=== PATIENT | female | born 1950 | race Caucasian/White ===

== ENCOUNTER 2017-10-27 06:53 | Day surgery (SDC) | payer MEDICARE, BC ==
[2017-10-26 15:43] LABS: CLARITY,URINE SLIGHTLY CLOUDY (Clear); COLOR,URINE YELLOW (Yellow); GLUCOSE, URINE NEGATIVE (Neg); KETONES,URINE NEGATIVE (Neg); LEUKOCYTE ESTERASE ,URINE MODERATE (Neg); NITRITES, URINE NEGATIVE (Neg); OCCULT BLOOD,URINE NEGATIVE (Neg); PH,URINE 5.5 (4.8-8.0); PROTEIN,URINE NEGATIVE (Neg); UROBILINOGEN,URINE 0.2 E.U/dL (0.2-1.0)
[2017-10-26 15:44] LABS: BASOPHILS % (AUTO) 0.5 % (0-1); EOSINOPHILS # (AUTO) 0.3 X10'3 (0-0.9); EOSINOPHILS % (AUTO) 4.6 % (0-6); LYMPHOCYTES # (AUTO) 3.3 X10'3 (1.1-4.8); LYMPHOCYTES % (AUTO) 44.2 % (21-51); MEAN CORPUSCULAR HEMOGLOBIN 29.9 PG (27.0-31.0); MEAN CORPUSCULAR HGB CONC 33.7 % (33.0-36.5); MEAN CORPUSCULAR VOLUME 88.8 FL (78-98); MEAN PLATELET VOLUME 8.3 FL (7.4-10.4); MONOCYTES # (AUTO) 0.5 X10'3 (0-0.9); MONOCYTES % (AUTO) 7.2 % (2-12); NEUTROPHILS # (AUTO) 3.2 X10'3 (1.8-7.7); NEUTROPHILS % (AUTO) 43.5 % (42-75); PRE OP HEMATOCRIT 38.5 % (35.0-45.0); PRE OP PLATELET COUNT 266 X10'3 (140-440); RED BLOOD COUNT 4.34 X10'6 (4.20-5.60); RED CELL DISTRIBUTION WIDTH 14.4 % (11.5-14.5)
[2017-10-26 16:05] LABS: UA COLLECTION TYPE CLN CATCH MIDSTREAM
[2017-10-26 16:06] LABS: RBC,URINE NONE SEEN /HPF (0-2); WBC,URINE 0-4 /HPF (0-4)
[2017-10-26 16:06] LABS: ALBUMIN 3.8 G/DL (3.4-5.0); ALBUMIN/GLOBULIN RATIO 1.1 (1.1-1.5); ALKALINE PHOSPHATASE 95 IU/L (46-116); BLOOD UREA NITROGEN 19 MG/DL (7-18); BUN/CREATININE RATIO 26.4 (6.6-38.0); CALCIUM 8.7 MG/DL (8.5-10.1); CHLORIDE 103 MMOL/L (99-107); CREATININE 0.72 MG/DL (0.40-0.90); PRE OP ALT 24 U/L (30-65); PRE OP ANION GAP 8 (8-16); PRE OP AST 14 U/L (10-37); PRE OP BILIRUB, TOTAL 0.2 MG/DL (0.0-1.0); PRE OP GLUCOSE 80 MG/DL (70-104); PRE OP SODIUM 141 MMOL/L (135-145); TOTAL CARBON DIOXIDE 29.7 MMOL/L (24-32); TOTAL PROTEIN 7.2 G/DL (6.4-8.2); eGFR 82 ML/MIN
[2017-10-26 16:07] LABS: BACTERIA,URINE 1+ /HPF (Neg); SQUAMOUS EPITHELIAL CELL,UR FEW /LPF (FEW)
[2017-10-26 16:08] LABS: PRE OP POTASSIUM 3.2 MMOL/L (3.4-5.1)
[~2017-10-27] VITALS: Ht 154.9 cm; Wt 96.8 kg
[2017-10-27] VITALS (11 sets, daily range): BP systolic 101–132; BP diastolic 52–130
[~2017-10-27 06:53] MED LIST: AMIT-189 PO; BENA1TAB79 PO; CHOL200016 PO; CLON0.5T23 PO; CYCL-394 PO; DOCU100C41 PO; PANT40TA4 PO; PREG150C PO; SIMV40TA4 PO; TRAM50TA2 PO; VENL150C58 PO; VITAMIN B PO; [UNRECOGNIZED DRUG - OTHER] PO; ceFAZolin 2gm in dextrose, iso 100 ML IV ONE; famotidine 20mg tablet PO ONE; ringers solution, lacted 1,000 ML IV SCH
[2017-10-27] MEDS ORDERED: BUPIVAcaine/PF 2.5 mg/ml (0.25%) 30ml vial ONE (07:37)
[2017-10-27 08:16] LABS: ISTAT CREATININE 0.8 mg/dL (0.6-1.1); ISTAT HGB 11.9 g/dl (12.0-16.0); ISTAT IONIZED CALCIUM 1.2 mmol/L (1.03-1.32); ISTAT K 3.8 mmol/L (3.5-5.1); POC BUN/CREATININE RATIO 27.5 (6.6-38.0)
[2017-10-27] MEDS ORDERED: propofol inj 20 ML IV ONE (08:44)
[2017-10-27] MEDS ORDERED: rocuronium 10mg/ml inj IV ONE (08:44)
[2017-10-27] MEDS ORDERED: fentaNYL /PF 50mcg/ml 5ml ampule ONE (08:46)
[2017-10-27] MEDS ORDERED: midazolam 2 mg/2 ml injection ONE (08:47)
[2017-10-27] MEDS ORDERED: glycopyrrolate 0.2mg/ml inj ONE (09:28)
[2017-10-27] MEDS ORDERED: dexamethasone sod phosphate 4mg/ml inj. ONE (09:28)
[2017-10-27] MEDS ORDERED: neostigmine methylsulfate 1 MG/ML 10ml vial ONE (09:28)
[2017-10-27] MEDS ORDERED: ondansetron/PF 4mg/2ml inj ONE (09:28)
[2017-10-27] MEDS ORDERED: ringers solution, lacted 1,000 ML IV SCH (10:11)
[2017-10-27] MEDS ORDERED: proCHLORperazine 10 MG/2 ml inj IV PRN (10:15)
[2017-10-27] MEDS ORDERED: meperidine/PF 50mg/ml syringe IV PRN ×2 (10:15)
[2017-10-27] MEDS ORDERED: ondansetron/PF 4mg/2ml inj IV PRN (10:15)
[2017-10-27] MEDS ORDERED: HYDROmorphone inj. 0.5 MG/0.5 ML DISP.SYRIN IV PRN ×2 (10:15)
[2017-10-27] MEDS ORDERED: ketorolac trometh. 30mg/ml inj. IV ONE (10:15)
[2017-10-27] MEDS ORDERED: fentaNYL/PF 50MCG/1 ML 2ML syringe IV PRN ×2 (10:15)
== END 2017-10-27 11:40 | disposition home or self-care (01) ==
LOC: PAS 06:53
PROVIDERS: ATTEND Surgery
DX: K80.12 Calculus of gallbladder with acute and chronic cholecystitis without obstruction (principal); I10 Essential (primary) hypertension; K21.9 Gastro-esophageal reflux disease without esophagitis; E55.9 Vitamin D deficiency, unspecified; E56.0 Deficiency of vitamin E; F32.9 Major depressive disorder, single episode, unspecified; J45.909 Unspecified asthma, uncomplicated; M19.90 Unspecified osteoarthritis, unspecified site; M79.7 Fibromyalgia; E78.00 Pure hypercholesterolemia, unspecified; E66.9 Obesity, unspecified; F41.9 Anxiety disorder, unspecified; Z68.41 Body mass index [BMI] 40.0-44.9, adult; Z96.653 Presence of artificial knee joint, bilateral; Z90.89 Acquired absence of other organs; Z98.890 Other specified postprocedural states; Z88.2 Allergy status to sulfonamides; Z79.899 Other long term (current) drug therapy
CPT/HCPCS: 36415; 47562; 80047; 80053; 81001; 85025; 87088; 93005; J0690; J1100; J1885; J2250; J2405; J2704; J2710; J3010; J3490; J7120; 88304; A7000

== ENCOUNTER 2022-04-15 08:52 | Inpatient (IN) | payer MEDICARE, BC ==
[2022-04-06 13:25] LABS: BASOPHILS # (AUTO) 0.1 X10'3 (0-0.2); BASOPHILS % (AUTO) 0.8 % (0-1); EOSINOPHILS # (AUTO) 0.3 X10'3 (0-0.9); EOSINOPHILS % (AUTO) 3.9 % (0-6); LYMPHOCYTES # (AUTO) 3.1 X10'3 (1.1-4.8); MEAN CORPUSCULAR HEMOGLOBIN 29.1 PG (27.0-31.0); MEAN CORPUSCULAR HGB CONC 32.9 g/dL (33.0-36.5); MEAN CORPUSCULAR VOLUME 88.4 FL (78-98); MEAN PLATELET VOLUME 8.3 FL (7.4-10.4); MONOCYTES # (AUTO) 0.6 X10'3 (0-0.9); MONOCYTES % (AUTO) 8.9 % (2-12); NEUTROPHILS # (AUTO) 2.7 X10'3 (1.8-7.7); NEUTROPHILS % (AUTO) 40.4 % (42-75); PRE OP HEMATOCRIT 40.2 % (35.0-45.0); PRE OP HEMOGLOBIN 13.2 g/dL (12.0-16.0); PRE OP PLATELET COUNT 255 X10'3 (140-440); RED BLOOD COUNT 4.55 X10'6 (4.20-5.60); RED CELL DISTRIBUTION WIDTH 14.8 % (11.5-14.5)
[2022-04-06 13:32] LABS: ALBUMIN 3.9 G/DL (3.4-5.0); ALBUMIN/GLOBULIN RATIO 1.3 (1.1-1.5); ALKALINE PHOSPHATASE 101 IU/L (46-116); BLOOD UREA NITROGEN 19 MG/DL (7-18); BUN/CREATININE RATIO 24.7 (6.6-38.0); CALCIUM 8.8 MG/DL (8.5-10.1); CHLORIDE 102 MMOL/L (99-107); CREATININE 0.77 MG/DL (0.40-0.90); PRE OP ALT 24 U/L (30-65); PRE OP ANION GAP 6 (8-16); PRE OP AST 16 U/L (10-37); PRE OP BILIRUB, TOTAL 0.3 MG/DL (0.0-1.0); PRE OP GLUCOSE 81 MG/DL (70-104); PRE OP SODIUM 139 MMOL/L (135-145); TOTAL CARBON DIOXIDE 31.3 MMOL/L (24-32); eGFR 74 ML/MIN
[~2022-04-15] VITALS: Ht 154.9 cm; Wt 92.9 kg
[2022-04-15] VITALS (18 sets, daily range): BP systolic 96–159; BP diastolic 63–94
[~2022-04-15 08:52] MED LIST changes: -AMIT-189 PO; +AMIT25TA9 PO; -BENA1TAB79 PO; +BENA1TAB88 PO; -CLON0.5T23 PO; +FAMO-156 PO; +MAGN250C PO; +MAGN64TA8 PO; +MULT-1173; -PANT40TA4 PO; +PANT40TA54 PO; +SIMV-45 PO; -SIMV40TA4 PO; -TRAM50TA2 PO; -VITAMIN B PO; +VITE400C PO; -[UNRECOGNIZED DRUG - OTHER] PO; -ceFAZolin 2gm in dextrose, iso 100 ML IV ONE; +ceFAZolin inj. 2,000 MG in dextrose 5%-water 100 ML IV ONE; +tranexamic acid inj. 1,000 MG in normal saline IV soln 100ML IV ONE; +vancomycin 1,500 MG in NS 300ml IV soln IV ONE; +vitafusion
[2022-04-15] MEDS ORDERED: vancomycin 1,000mg inj ONE ×2 (10:23→11:11)
[2022-04-15] MEDS ORDERED: ketorolac trometh. 30mg/ml inj. ONE (11:02)
[2022-04-15] MEDS ORDERED: ROPIVAcaine 0.5% (5mg/ml) 30ml vial ONE ×2 (11:03→12:06)
[2022-04-15] MEDS ORDERED: epiNEPHrine 1 mg/ml inj ONE (11:03)
[2022-04-15] MEDS ORDERED: morphine /PF 1mg/ml 10ml inj. ONE (11:03)
[2022-04-15] MEDS ORDERED: morphine 10mg/ml inj. ONE (11:05)
[2022-04-15] MEDS ORDERED: MIDAZolam 1mg/ml 10ml vial ONE (11:37)
[2022-04-15] MEDS ORDERED: fentaNYL/PF 50MCG/1 ML 2ML syringe ONE (11:37)
[2022-04-15] MEDS ORDERED: morphine 2 MG/ML inj. syringe IV PRN (14:35)
[2022-04-15] MEDS ORDERED: ROPIVAcaine 0.2% (10 MG/5 ML) BOLUS INJECTION ADDCANAL PRN (14:35)
[2022-04-15] MEDS ORDERED: ringers solution, lacted 1,000 ML IV SCH (14:35)
[2022-04-15] MEDS ORDERED: ROPIVAcaine 0.2%/PF PUMP/bolus 545 ML ADDCANAL SCH (14:35)
[2022-04-15] MEDS ORDERED: morphine 4 MG/ML inj SYRINge IV PRN (14:35)
[2022-04-15] MEDS ORDERED: ondansetron/PF 4mg/2ml inj IV PRN ×3 (14:35→15:10)
[2022-04-15] MEDS ORDERED: proCHLORperazine 10 MG/2 ml inj IV PRN (14:35)
[2022-04-15] MEDS ORDERED: meperidine/PF 25mg/ml syringe IV PRN ×3 (14:35)
[2022-04-15] MEDS ORDERED: naloxone 0.4 mg/ml inj IV PRN ×2 (15:05→15:10)
[2022-04-15] MEDS ORDERED: acetaminophen 325mg tablet PO PRN ×2 (15:05→15:10)
[2022-04-15] MEDS ORDERED: diphenhydrAMINE 25mg capsule PO PRN ×4 (15:05→15:10)
[2022-04-15] MEDS ORDERED: magnesium hydroxide 30ml (MOM) UD suspension PO PRN ×2 (15:05→15:10)
[2022-04-15] MEDS ORDERED: bisacodyl 10mg suppository rectal RC PRN ×2 (15:05→15:10)
[2022-04-15] MEDS ORDERED: HYDROmorphone inj. 0.5 MG/0.5 ML DISP.SYRIN IV PRN (15:10)
[2022-04-15] MEDS ORDERED: HYDROmorphone 1 mg/ml syringe IV PRN (15:10)
[2022-04-15] MEDS: potassium cl 20mEq in 1/2 NS 1,000 ML IV SCH (17:03)
[2022-04-15] MEDS ORDERED: tranexamic acid inj. 930 MG in normal saline 100ml IV soln 90.7 ML IV ONE (18:30)
[2022-04-15] MEDS: ceFAZolin/D5W- 1GM premix 50 ML IV SCH (19:15)
[2022-04-15] MEDS ORDERED: vancomycin/NS 1 GM ADD-VANTAGE 250 ML IV SCH (20:00)
[2022-04-15] MEDS: gabapentin 300mg capsule PO SCH (20:12)
[2022-04-15] MEDS: sennosides 8.6mg tablet PO SCH (20:12)
[2022-04-15] MEDS: acetaminophen 325mg tablet PO SCH (20:12)
[2022-04-15] MEDS ORDERED: sennosides 8.6mg tablet PO SCH (21:00)
[2022-04-15] MEDS: amitriptyline 25mg tablet PO SCH (21:55)
[2022-04-15] MEDS: pregabalin 75mg capsule PO SCH (21:55)
[2022-04-16] MEDS: ceFAZolin/D5W- 1GM premix 50 ML IV SCH (01:29)
[2022-04-16] MEDS: acetaminophen 325mg tablet PO SCH ×4 (01:30→20:05)
[2022-04-16 02:00] VITALS: BP 112/58
[2022-04-16] MEDS: potassium cl 20mEq in 1/2 NS 1,000 ML IV SCH ×3 (03:56→15:11)
[2022-04-16] MEDS: oxyCODONE IR 5mg (immed. release) tablet PO PRN ×3 (05:18→20:06)
[2022-04-16 06:00] VITALS: BP 114/67
[2022-04-16 06:44] LABS: BASOPHILS % (AUTO) 0.2 % (0-1); EOSINOPHILS % (AUTO) 0.1 % (0-6); HEMATOCRIT 29.5 % (35.0-45.0); LYMPHOCYTES # (AUTO) 1.7 X10'3 (1.1-4.8); LYMPHOCYTES % (AUTO) 14.7 % (21-51); MEAN CORPUSCULAR HEMOGLOBIN 30.3 PG (27.0-31.0); MEAN CORPUSCULAR HGB CONC 33.9 g/dL (33.0-36.5); MEAN CORPUSCULAR VOLUME 89.3 FL (78-98); MEAN PLATELET VOLUME 8.4 FL (7.4-10.4); MONOCYTES # (AUTO) 0.7 X10'3 (0-0.9); MONOCYTES % (AUTO) 6.4 % (2-12); NEUTROPHILS # (AUTO) 9.1 X10'3 (1.8-7.7); NEUTROPHILS % (AUTO) 78.6 % (42-75); PLATELET COUNT 190 X10'3 (140-440); RED CELL DISTRIBUTION WIDTH 14.2 % (11.5-14.5); WHITE BLOOD COUNT 11.6 X10'3 (4.5-11.0)
[2022-04-16 06:48] LABS: ANION GAP 5 (8-16); CHLORIDE 109 MMOL/L (99-107); POTASSIUM 4.1 MMOL/L (3.5-5.1); SODIUM 142 MMOL/L (135-145); TOTAL CARBON DIOXIDE 27.6 MMOL/L (24-32)
[2022-04-16] MEDS: MAGNESIUM CITRATE AND OXIDE 250 MG PO SCH (08:00)
[2022-04-16] MEDS: [UNRECOGNIZED DRUG - OTHER] PO SCH (08:00)
[2022-04-16] MEDS: docusate sod 100mg capsule PO SCH (08:50)
[2022-04-16] MEDS: pregabalin 75mg capsule PO SCH ×2 (08:51→20:05)
[2022-04-16] MEDS: cyclobenzaprine 10mg tablet PO SCH ×2 (08:51→20:05)
[2022-04-16] MEDS: atorvastatin 20mg tablet PO SCH (08:51)
[2022-04-16] MEDS: gabapentin 300mg capsule PO SCH ×3 (08:52→20:06)
[2022-04-16] MEDS: HYDROchlorothiazide 12.5mg capsule PO SCH (08:52)
[2022-04-16] MEDS: pantoprazole 40mg Tablet.DR PO SCH (08:52)
[2022-04-16] MEDS: multivitamins, therapeutics tablet PO SCH (08:53)
[2022-04-16] MEDS: cholecalciferol (vitamin D3) 1,000 unit (25mcg) tablet PO SCH (08:54)
[2022-04-16] MEDS: lisinopril 20mg tablet PO SCH (08:57)
[2022-04-16] MEDS: vitamin E 400 unit capsule PO SCH (08:58)
[2022-04-16] MEDS: enoxaparin 40mg/0.4ml syringe SQ SCH (09:02)
[2022-04-16 10:00] VITALS: BP 135/63
[2022-04-16] MEDS: venlafaxine XR 75mg capsule (Q24H) PO SCH (10:35)
[2022-04-16 18:00] VITALS: BP 114/66
[2022-04-16] MEDS: celeCOXIB 100mg capsule PO SCH (20:04)
[2022-04-16] MEDS: amitriptyline 25mg tablet PO SCH (20:06)
[2022-04-16] MEDS: sennosides 8.6mg tablet PO SCH (20:07)
[2022-04-16] MEDS ORDERED: famotidine 20mg tablet PO SCH (21:00)
[2022-04-16] MEDS ORDERED: magnesium Cl slow-release 64mg tablet PO SCH (21:00)
[2022-04-16 22:00] VITALS: BP 119/59
[2022-04-17] MEDS: oxyCODONE IR 5mg (immed. release) tablet PO PRN ×2 (01:00→05:18)
[2022-04-17] MEDS: acetaminophen 325mg tablet PO SCH ×2 (02:02→08:41)
[2022-04-17 06:00] VITALS: BP 124/75
[2022-04-17] MEDS: [UNRECOGNIZED DRUG - OTHER] PO SCH (08:00)
[2022-04-17] MEDS: MAGNESIUM CITRATE AND OXIDE 250 MG PO SCH (08:00)
[2022-04-17 08:03] LABS: BASOPHILS % (AUTO) 0.4 % (0-1); EOSINOPHILS # (AUTO) 0.4 X10'3 (0-0.9); HEMATOCRIT 30.2 % (35.0-45.0); HEMOGLOBIN 10.3 g/dl (12.0-16.0); LYMPHOCYTES # (AUTO) 2.1 X10'3 (1.1-4.8); LYMPHOCYTES % (AUTO) 23.7 % (21-51); MEAN CORPUSCULAR HEMOGLOBIN 30.3 PG (27.0-31.0); MEAN PLATELET VOLUME 8.7 FL (7.4-10.4); MONOCYTES # (AUTO) 0.9 X10'3 (0-0.9); MONOCYTES % (AUTO) 10.3 % (2-12); NEUTROPHILS # (AUTO) 5.4 X10'3 (1.8-7.7); NEUTROPHILS % (AUTO) 60.6 % (42-75); PLATELET COUNT 183 X10'3 (140-440); RED BLOOD COUNT 3.39 X10'6 (4.20-5.60); RED CELL DISTRIBUTION WIDTH 14.6 % (11.5-14.5); WHITE BLOOD COUNT 8.9 X10'3 (4.5-11.0)
[2022-04-17] MEDS: enoxaparin 40mg/0.4ml syringe SQ SCH (08:39)
[2022-04-17] MEDS: vitamin E 400 unit capsule PO SCH (08:39)
[2022-04-17] MEDS: cyclobenzaprine 10mg tablet PO SCH (08:39)
[2022-04-17] MEDS: cholecalciferol (vitamin D3) 1,000 unit (25mcg) tablet PO SCH (08:39)
[2022-04-17] MEDS: atorvastatin 20mg tablet PO SCH (08:40)
[2022-04-17] MEDS: celeCOXIB 100mg capsule PO SCH (08:40)
[2022-04-17] MEDS: docusate sod 100mg capsule PO SCH (08:40)
[2022-04-17 08:42] VITALS: BP_SYST 124
[2022-04-17] MEDS: lisinopril 20mg tablet PO SCH (08:42)
[2022-04-17] MEDS: HYDROchlorothiazide 12.5mg capsule PO SCH (08:42)
[2022-04-17] MEDS: gabapentin 300mg capsule PO SCH (08:50)
[2022-04-17] MEDS: venlafaxine XR 75mg capsule (Q24H) PO SCH (08:55)
[2022-04-17] MEDS: pregabalin 75mg capsule PO SCH (08:55)
[2022-04-17] MEDS: pantoprazole 40mg Tablet.DR PO SCH (08:59)
[2022-04-17] MEDS: multivitamins, therapeutics tablet PO SCH (08:59)
[2022-04-17] MEDS ORDERED: acetaminophen 325mg tablet PO PRN (15:10)
== END 2022-04-17 13:50 | disposition home or self-care (01) | DRG 468 ==
LOC: PAS IN 08:52 → ORTHO 4S 16:22
PROVIDERS: ADMIT Orthopaedic Surgery; ATTEND Orthopaedic Surgery
PROC: 0SRD0J9 Replacement of Left Knee Joint with Synthetic Substitute, Cemented, Open Approach (ICD-10-PCS; 2022-04-15)
PROC: 3E0T3BZ Introduction of Anesthetic Agent into Peripheral Nerves and Plexi, Percutaneous Approach (ICD-10-PCS; 2022-04-15)
PROC: 3E0T33Z Introduction of Anti-inflammatory into Peripheral Nerves and Plexi, Percutaneous Approach (ICD-10-PCS; 2022-04-15)
PROC: 0SPD0LZ Removal of Medial Unicondylar Synthetic Substitute from Left Knee Joint, Open Approach (ICD-10-PCS; principal; 2022-04-15 11:28)
DX: M17.12 Unilateral primary osteoarthritis, left knee (principal)
CPT/HCPCS: 36415; 73560; 80051; 80053; 82948; 85025; 87081; 87811; 93005; 97110; 97161; 97530; A4215; A6253; A6446; A6449; A7000; C1713; C1758; C1776; C9250; G0378; J0171; J0690; J1650; J1885; J2250; J2274; J2795; J3010; J3370; J3480; J3490; J7040; J7060; J7120